=== PATIENT | male | born 1970 | race Caucasian/White ===

== ENCOUNTER 2021-08-29 10:33 | Emergency (ER) | payer BC ==
[2021-08-29 10:40] VITALS: BP 138/86; PULSE 72; TEMP 98.6; BMI 25.4
[2021-08-29] MEDS ORDERED: ACETAMINOPHEN 325 MG TABLET (FP) PO ONE (11:34)
[2021-08-29] MEDS ORDERED: IBUPROFEN 600 MG TABLET (FP) PO ONE ×2 (11:34→11:39)
[2021-08-29] MEDS ORDERED: ACETAMINOPHEN 325 MG TABLET (FP) ONE (11:39)
== END 2021-08-29 13:00 | disposition home or self-care (01) ==
LOC: JERFT 10:33
DX: S09.90XA Unspecified injury of head, initial encounter (principal); R51.9 Headache, unspecified; V01.00XA Pedestrian on foot injured in collision with pedal cycle in nontraffic accident, initial encounter
CPT/HCPCS: 70450-TC; 99284-25

== ENCOUNTER 2023-03-09 14:20 | Day surgery (SDC) | payer BC ==
[2023-03-07 15:28] VITALS: BMI 25.4
[2023-03-09] MEDS ORDERED: BUPIVACAINE HCL/PF 2.5 MG/ML - 30 ML VIAL IJ ONE (15:02)
[2023-03-09] MEDS ORDERED: ROPIVACAINE HCL 0.5% 30ML VIAL ONE (15:12)
[2023-03-09] MEDS ORDERED: FENTANYL CITRATE/PF 50 MCG/ML VIAL ONE (15:13)
[2023-03-09] MEDS ORDERED: MIDAZOLAM HCL 2 MG/2 ML SINGLE DOSE VIAL ONE (15:13)
[2023-03-09] MEDS ORDERED: DEXAMETHASONE SOD PHOSPHATE 4 MG/1 ML VIAL ONE (15:38)
[2023-03-09] MEDS ORDERED: ONDANSETRON 4 MG/2 ML VIAL ONE (15:38)
[2023-03-09] MEDS ORDERED: PROPOFOL 20 ML ONE (15:38)
[2023-03-09] MEDS ORDERED: SEVOFLURANE 250 ML BTL ONE (15:40)
[2023-03-09] MEDS ORDERED: ceFAZolin SODIUM 1 GM VIAL ONE (15:47)
[2023-03-09] MEDS ORDERED: KETOROLAC TROMETHAMINE 30 MG/1 ML VIAL ONE (16:57)
[2023-03-09] MEDS ORDERED: MAGNESIUM SULF 50% (8.12 MEQ/2 ML-1 GM VIAL) ONE ×2 (17:00→17:12)
[2023-03-09] MEDS ORDERED: BUPIVACAINE HCL/PF 0.5% (5MG/ML) 10 ML VIAL ONE (17:16)
[2023-03-09] MEDS ORDERED: ACETAMINOPHEN INJECTION 100 ML IVPB ONE (17:19)
[2023-03-09] MEDS ORDERED: PROMETHAZINE HCL 25 MG/1 ML VIAL IVPB PRN (18:08)
[2023-03-09] MEDS ORDERED: ONDANSETRON 4 MG/2 ML VIAL IVPUSH PRN (18:08)
[2023-03-09] MEDS ORDERED: oxyCODONE HCL 5 MG TABLET PO PRN ×2 (18:08)
[2023-03-09] MEDS ORDERED: LACTATED RINGERS SOLUTION 1,000 ML IV SCH (18:15)
[2023-03-09 18:43] VITALS: RESP 17; TEMP 97.6
[2023-03-09 19:04] VITALS: BP 128/80; PULSE 93
== END 2023-03-09 19:09 | disposition home or self-care (01) ==
LOC: FASU 14:20
PROVIDERS: ATTEND Orthopaedic Surgery Sports Medicine
PROC: 0QSJ04Z Reposition Right Fibula with Internal Fixation Device, Open Approach (ICD-10-PCS; principal; 2023-03-09 16:21)
DX: S82.842A Displaced bimalleolar fracture of left lower leg, initial encounter for closed fracture (principal); X58.XXXA Exposure to other specified factors, initial encounter; Y93.9 Activity, unspecified; Y92.9 Unspecified place or not applicable
CPT/HCPCS: 27814; C1713; 73610-TC-LT-FY; 94760